=== PATIENT | female | born 1995 | race Two or more races ===

== ENCOUNTER 2018-11-02 23:57 | Emergency (ER) | payer MEDICAID ==
[~2018-11-02] VITALS: Ht 162.6 cm; Wt 54.4 kg
[2018-11-03 00:37] LABS: APPEARANCE,URINE Clear (CLEAR); BILIRUBIN,URINE Negative (NEGATIVE); BLOOD, URINE Trace-intact Ery/uL (NEGATIVE); COLOR,URINE Yellow (YELLOW); KETONES,URINE Negative (NEGATIVE); LEUKOCYTE ESTERASE ,URINE Negative (NEGATIVE); NITRITE, URINE Negative (NEGATIVE); PH,URINE 6.5 (5.0-8.0); PROTEIN,URINE Negative (NEGATIVE); UGLUCOSE Negative (NEGATIVE); UROBILINOGEN,URINE 0.2 EU/dL (0.2)
[2018-11-03 00:41] LABS: BASOPHILS # (AUTO) 0.1 /CMM (0.0-0.2); BASOPHILS % (AUTO) 0.8 % (0.0-2.0); EOSINOPHILS % (AUTO) 3.4 % (0.0-6.0); HEMATOCRIT 44 % (33-45); HEMOGLOBIN 15.1 g/dL (11.5-14.8); LYMPHOCYTES # (AUTO) 2.2 /CMM (0.8-4.8); LYMPHOCYTES % (AUTO) 24.5 % (20.0-44.0); MEAN CORPUSCULAR HGB CONC 35 g/dl (31.0-36.0); MEAN CORPUSCULAR VOLUME 94 fL (82-100); MONOCYTES # (AUTO) 1.2 /CMM (0.1-1.30); MONOCYTES % (AUTO) 12.6 % (2.0-12.0); NEUTROPHILS # (AUTO) 5.4 /CMM (1.8-8.9); NEUTROPHILS % (AUTO) 58.7 % (43.0-81.0); PLATELET COUNT (AUTO) 274 /CMM (150-450); RED BLOOD CELL COUNT(AUTO) 4.65 MIL/uL (4.0-5.2); WHITE BLOOD COUNT (AUTO) 9.2 K/uL (4.3-11.0)
[2018-11-03 00:48] LABS: CALCIUM, SERUM 8.9 mg/dL (8.5-10.1); CARBON DIOXIDE 29 mmol/L (21-32); CHLORIDE 104 mmol/L (98-107); CREATININE 0.8 mg/dL (0.6-1.3); GLUCOSE 95 mg/dL (74-106); POTASSIUM 3.7 mmol/L (3.5-5.1); SODIUM SERUM 140 mmol/L (136-145); UREA NITROGEN, BLOOD 9 mg/dL (7-18)
[2018-11-03 01:01] LABS: ACETAMINOPHEN 0 ug/ml (10-30); ALANINE AMINOTRANSFERASE 20 U/L (12-78); ALBUMIN 4.3 g/dL (3.4-5.0); ALCOHOL, BLOOD < 3 mg/dL (0-0); ALKALINE PHOSPHATASE 76 U/L (46-116); ASPARTATE AMINOTRANSFERASE 16 U/L (15-37); BILIRUBIN,DIRECT 0.1 mg/dL (0.0-0.2); BILIRUBIN,TOTAL 0.4 mg/dL (0.2-1.0); SALICYLATE 1.6 mg/dL (2.8-20.0)
[2018-11-03 01:04] LABS: BACTERIA,URINE Few /HPF (None Seen); RBC,URINE 0-2 /HPF (0-2); SQUAMOUS EPITHELIAL CELL,UR Moderate /HPF (None Seen)
--- NOTE | 2018-11-03 01:26 | NUR ---
pt in bed w/ the responser at the bed side. pt w/ episodes of anxiety and agitation. refused vs check at this time.
--- NOTE | 2018-11-03 02:55 | NUR ---
[employer] PRESENTED AT THE BED SIDE TO EVALUATE THE PT BUT PT ANXIOUS, NON- COOPERATIVE AND VERBALLY ABUSIVE.
[2018-11-03] MEDS ORDERED: HALOPERIDOL LACTATE INJ 5 MG/ML VIAL ONE (03:05)
[2018-11-03] MEDS ORDERED: HALOPERIDOL LACTATE INJ 5 MG/ML VIAL IM ONE (03:30)
--- NOTE | 2018-11-03 05:17 | NUR ---
PER INTAKE AT [facility], NO BEDS AVAILABLE UNTIL 0900
--- NOTE | 2018-11-03 06:32 | NUR ---
CATIE (SPONSER) CONTACT INFORMATION: [phone]
--- NOTE | 2018-11-03 06:33 | NUR ---
PT RESTING COMFORTABLY IN BED. VITAL SIGNS STABLE. NO ACUTE DISTRESS NOTED AT THIS TIME. SITTER AT BEDSIDE. WILL CONTINUE TO MONITOR
--- NOTE | 2018-11-03 08:32 | NUR ---
PT RESTING IN BED. ON MONITOR. VSS. WILL CONT TO MONITOR. SITTER AT BEDSIDE.
--- NOTE | 2018-11-03 11:05 | NUR ---
RESTING AT BEDSIDE. VSS. WILL CONTINUE TO MONITOR.
[2018-11-03 12:05] VITALS: BP 115/65
--- NOTE | 2018-11-03 12:10 | NUR ---
PT TRANPORTED TO [facility]. STABLE CONDITION.
== END 2018-11-03 12:13 ==
LOC: ER 23:57
DX: R45.851 Suicidal ideations (principal); R45.850 Homicidal ideations; F12.90 Cannabis use, unspecified, uncomplicated; F43.10 Post-traumatic stress disorder, unspecified
CPT/HCPCS: 36415; 80048; 80076; 80305; 80307; 80329; 81001; 84703; 85025; 96372; 99285; G0480; J1630; 81000-TC